=== PATIENT | female | born 1980 | race Caucasian/White ===

== ENCOUNTER 2020-02-06 16:57 | Inpatient (IN) | payer MEDICARE ==
[~2020-02-06] VITALS: Ht 165.1 cm; Wt 40.8 kg
[2020-02-06 17:36] LABS: BASOPHILS 0.3 % (0-2); EOSINOPHILS 0.1 % (0-7); HEMATOCRIT 32.2 % (36.0-48.0); HEMOGLOBIN 9.6 g/dL (12-16); IMMATURE GRANULOCYTES 0.3 % (0-5); LYMPHOCYTES 6.4 % (15-50); MCH 25.3 pg (26.0-34.0); MCHC 29.8 g/dL (31.0-37.0); MCV 84.7 fL (80.0-100.0); MEAN PLATELET VOLUME 8.5 fL (7.4-10.4); MONOCYTES 6.7 % (2-11); NEUTROPHILS 86.2 % (40-80); PLATELET COUNT 350 10x3/uL (130-400); RDW 15.2 % (11.5-14.5); WBC 14.4 10x3/uL (4.8-10.8)
[2020-02-06 17:51] LABS: CALC OSMOLALITY 286 mosm/kg (275-300); CALCIUM 9.3 mg/dL (8.5-10.1); CARBON DIOXIDE 29.1 mmol/L (21.0-32.0); CHLORIDE - SERUM 105 mmol/L (98-107); CREATININE - SERUM 0.9 mg/dL (0.6-1.3); GLUCOSE 85 mg/dL (74-106); POTASSIUM - SERUM 4.3 mmol/L (3.5-5.1); SODIUM 143 mmol/L (136-145); UREA NITROGEN 20 mg/dL (7-18); eGFR NON AFRICAN AMERICAN 73 mL/min (90-120)
[2020-02-06 18:08] LABS: ALKALINE PHOSPHATASE 84 U/L (30-120); BILIRUBIN - TOTAL 1.19 mg/dL (0.2-1.3); CKMB 0.4 U/L (0.0-3.6); CREATINE KINASE 38 UL (21-215); PROTEIN - SERUM 7.3 g/dL (6.4-8.2)
[2020-02-06 18:19] LABS: ALT (SGPT) 2 U/L (10-68); LIPASE 121 U/L (73-393); MAGNESIUM - SERUM 2.1 mg/dL (1.8-2.4)
[2020-02-06 18:20] LABS: AMYLASE - SERUM 46 U/L (25-115); TROPONIN-I < 0.017 ng/mL (0.000-0.060)
[2020-02-06 18:42] LABS: BILIRUBIN NEGATIVE (NEGATIVE); GLUCOSE NEGATIVE (NEGATIVE); KETONE NEGATIVE (NEGATIVE); NITRITE NEGATIVE (NEGATIVE); SPECIFIC GRAVITY 1.015 (1.005-1.020); UROBILINOGEN NORMAL (NORMAL)
[2020-02-06 18:43] LABS: AMORPHOUS SEDIMENT >1+ /lpf (NONE SEEN); BACTERIA MODERATE /hpf (NEGATIVE); RED CELLS - URINE NONE SEEN /hpf (0-5); WHITE CELLS - URINE 0-5 /hpf (NEGATIVE)
[2020-02-06 18:49] LABS: UDS - AMPHET POSITIVE QUAL (NEGATIVE); UDS - BARB NEGATIVE QUAL (NEGATIVE); UDS - BENZO NEGATIVE QUAL (NEGATIVE); UDS - COCAINE POSITIVE QUAL (NEGATIVE); UDS - OPIATE NEGATIVE QUAL (NEGATIVE); UDS - PCP NEGATIVE QUAL (NEGATIVE); UDS - THC NEGATIVE QUAL (NEGATIVE)
--- NOTE | 2020-02-06 19:16 | NUR ---
PATIENT TO CT VIA STRETCHER
--- NOTE | 2020-02-06 19:26 | NUR ---
SPOKE WITH DORA CARVER. ADVISED TO HOLD ROCEPHIN UNTIL BC DRAWN
--- NOTE | 2020-02-06 19:27 | NUR ---
SPOKE WITH LIN IN LAB. STATES BLOOD CULTURES ALREADY DRAWN. PATIENT REMAINS IN CT. WILL INITIATE ROCEPHIN WHEN SHE RETURNS.
--- NOTE | 2020-02-06 19:35 | NUR ---
FIRST BOLUS OF NS NOT COMPLETE. WILL COMPLETE AND HANG 2ND LITER NS.
[2020-02-06 19:55] VITALS: BP 108/42
--- NOTE | 2020-02-06 21:05 | NUR ---
PATIENT RESTING. WAITING ON ADMIT ORDERS. NS AND ZITHROMAX INFUSING
--- NOTE | 2020-02-06 22:30 | NUR ---
WAITING ON HOUSE SUP TO ASSIGN ROOM. PATIENT AWARE.
[2020-02-07] VITALS (7 sets, daily range): BP systolic 85–113; BP diastolic 56–70; Ht 165.1 cm; Wt 40.8 kg
--- NOTE | 2020-02-07 05:14 | NUR ---
I have reviewed this patient and I concur with the Shift Assessment completed by the Licensed Practical Nurse today this shift.
--- NOTE | 2020-02-07 19:27 | NUR ---
AROUSES WHEN I ENTER ROOM DENIES NEEDS AT THIS TIME BED IS LOW AND LOCKED AND CALL LIGHT IS IN REACH
[2020-02-08 05:17] LABS: BASOPHILS 0.4 % (0-2); EOSINOPHILS 1.6 % (0-7); HEMATOCRIT 31.4 % (36.0-48.0); HEMOGLOBIN 9.2 g/dL (12-16); IMMATURE GRANULOCYTES 0.1 % (0-5); LYMPHOCYTES 20.3 % (15-50); MCHC 29.3 g/dL (31.0-37.0); MCV 85.3 fL (80.0-100.0); MEAN PLATELET VOLUME 8.8 fL (7.4-10.4); MONOCYTES 9.5 % (2-11); NEUTROPHILS 68.1 % (40-80); RBC 3.68 10x6/uL (4.00-5.40); RDW 15.3 % (11.5-14.5)
[2020-02-08 05:28] LABS: PLATELET COUNT 549 10x3/uL (130-400); WBC 7.6 10x3/uL (4.8-10.8)
[2020-02-08 05:37] LABS: CALCIUM 8.1 mg/dL (8.5-10.1); CARBON DIOXIDE 29.6 mmol/L (21.0-32.0); CHLORIDE - SERUM 108 mmol/L (98-107); GLUCOSE 92 mg/dL (74-106); POTASSIUM - SERUM 3.8 mmol/L (3.5-5.1); SODIUM 142 mmol/L (136-145)
[2020-02-08 05:39] LABS: CALC OSMOLALITY 280 mosm/kg (275-300); UREA NITROGEN 7 mg/dL (7-18)
[2020-02-08 05:40] LABS: CREATININE - SERUM 0.5 mg/dL (0.6-1.3); eGFR NON AFRICAN AMERICAN > 90 mL/min (90-120)
[2020-02-08 08:29] VITALS: BP 95/60
[2020-02-08 12:22] VITALS: BP 107/78
--- NOTE | 2020-02-08 16:28 | NUR ---
I have reviewed this patient and I concur with the Shift Assessment completed by the Licensed Practical Nurse today this shift.
[2020-02-08 17:13] VITALS: BP 109/70
--- NOTE | 2020-02-08 19:26 | NUR ---
PT IS AT REST WITH EYES CLOSED IV SL BED LOW AND LOCKED SRXTWO AND CALL LIGHT IS IN REACH RESP EVEN AND NON LABORED
[2020-02-08 20:00] VITALS: BP 96/41
[2020-02-09] VITALS: BP 93/63
[2020-02-09 04:00] VITALS: BP 95/59
[2020-02-09 06:28] LABS: BASOPHILS 0.4 % (0-2); EOSINOPHILS 1.8 % (0-7); HEMATOCRIT 33.1 % (36.0-48.0); HEMOGLOBIN 9.7 g/dL (12-16); IMMATURE GRANULOCYTES 0.1 % (0-5); LYMPHOCYTES 25.7 % (15-50); MCH 24.9 pg (26.0-34.0); MCHC 29.3 g/dL (31.0-37.0); MCV 85.1 fL (80.0-100.0); MEAN PLATELET VOLUME 8.7 fL (7.4-10.4); MONOCYTES 9.7 % (2-11); NEUTROPHILS 62.3 % (40-80); PLATELET COUNT 587 10x3/uL (130-400); RBC 3.89 10x6/uL (4.00-5.40); RDW 15.1 % (11.5-14.5); WBC 6.7 10x3/uL (4.8-10.8)
[2020-02-09 06:51] LABS: CALC OSMOLALITY 274 mosm/kg (275-300); CALCIUM 8.3 mg/dL (8.5-10.1); CARBON DIOXIDE 30.2 mmol/L (21.0-32.0); CHLORIDE - SERUM 106 mmol/L (98-107); CREATININE - SERUM 0.5 mg/dL (0.6-1.3); GLUCOSE 77 mg/dL (74-106); POTASSIUM - SERUM 4.3 mmol/L (3.5-5.1); SODIUM 140 mmol/L (136-145); eGFR NON AFRICAN AMERICAN > 90 mL/min (90-120)
[2020-02-09 06:52] LABS: UREA NITROGEN 3 mg/dL (7-18)
[2020-02-09 08:00] VITALS: BP 113/72
[2020-02-09] MEDS ORDERED: OMNICEF300 MG PO (10:07)
[2020-02-09] MEDS ORDERED: ZITHROMAX500 MG PO (10:07)
--- NOTE | 2020-02-09 11:42 | NUR ---
I have reviewed this patient and I concur with the Shift Assessment completed by the Licensed Practical Nurse today this shift.
--- NOTE | 2020-02-09 12:30 | NUR ---
PT DISCHARGED HOME VIA WHEELCHAIR WITH TAXI. PIV REMOVED WITH CATHETER TIP FULLY INTACT. PT SIGNED DISCHARGE INSTRUCTIONS AND REMOVED ALL VALUABLES FROM THE ROOM.
--- NOTE | 2020-02-09 16:43 | MORECARE ---
CASE MANAGEMENT DISCHARGE SUMMARY PATIENT: HERBERT PATINO UNIT: [id number] ADM DATE: 02/06/20 AGE: 39 : 78 SEX: F ROOM/BED: D.0357 AUTHOR: ORAL,DOC PHYSICIAN: REFERRING PHYSICIAN: YUSUF FERNANDEZ MD DATE OF SERVICE: 02/09/20 Discharge Plan Patient Name: HERBERT PATINO Facility: [facility]:[place] : 1980 Planned Disposition: Home or Self Care Anticipated Discharge Date: 02/09/20 Discharge Date: 02/09/2020 Expected LOS: 3 Initial Reviewer: [email or web address] Initial Review Date: 02/06/2020 Generated: 02/09/20 5:42 pm Comments DCP- Discharge Planning Updated by [email or web address]: Mariela Menendez on 02/09/20 3:[address] CM met with patient to discuss DC needs/plans. A/O. Patient states she lives independently with "an older man, Vega." Patient states she just obtained her insurance. PCP: MAGUE @[facility]. Pharmacy: [facility]. DME: No. States she receives [employer] and SSI check. States "I am out of money for the month and don't have anyway to get home." CM verified patient's address as [address] [place] [address]. States she does not know her phone number "I just got a new phone and don't know how to get it open for contacting someone to pick me up." Denies the need for HHS, Rehab, SNF. Patient states she has 3 steps with rails at entry to her home. Denies hospitalization within the past 30 days. States she feels safe returning to her home. CM contacted [employer] [phone] for transportation home, with the cost of $7. 25. Notified Dir Shayna of [facility] of same. DCPIA - Discharge Planning Initial Assessment Updated by [email or web address]: Mariela Menendez on 02/09/20 4:42 pm * Is the patient Alert and Oriented? Yes * How many steps to enter\\exit or inside your home? 3/rails * PCP MAGUE @[facility] * Pharmacy [facility]. * Preadmission Environment Home Alone * ADLs Independent * Other Equipment NA * List name and contact numbers for known caregivers / representatives who currently or will assist patient after discharge: NA * Verbal permission to speak to the caregivers and representatives has been obtained from the patient. N/A * Community resources currently utilized Other * Please name any agencies selected above. SSI check [employer] * Additional services required to return to the preadmission environment? No * Can the patient safely return to the preadmission environment? Yes * Has this patient been hospitalized within the prior 30 days at any hospital? No Coverage Notice Reviewer: [id number] Jamie Menendez Notice Issued Date-Time: 02/09/2020 10:48 Notice Type: IM Discharge Notice Notice Delivered To: Patient Relationship to Patient: Self Relocation Counselor Name: Herbert Patino Delivery Method: HAND - Hand Delivered Brianna Days: Prior Verbal Notification: Recipient Understood Notice: Yes Recipient Signature: Yes Med Rec Note Co-signed by Attending: Coverage Notice Comment: DC IMM signed/provided to patient. Original to chart Patient Name: HERBERT PATINO Page [id number] at 1643 All edits/amendments must be made on the electronic document DICTATION DATE: 02/09/201641 LENS EDGE GRINDER MACHINE: DEEJAY 02/09/201641 RPT#: [id number] DC DATE:02/09/20 STATUS: DIS IN [facility] [address] [place] [address] END OF REPORT
== END 2020-02-09 12:31 | disposition home or self-care (01) | DRG 194 ==
LOC: D.ER 16:57 → D.M2 21:13 → D.ICU 21:13 → D.M2 22:32
PROVIDERS: Family Medicine; ADMIT Internal Medicine Nephrology; ATTEND Internal Medicine Nephrology
DX: J18.9 Pneumonia, unspecified organism (principal); N39.0 Urinary tract infection, site not specified; N17.9 Acute kidney failure, unspecified; E46 Unspecified protein-calorie malnutrition; Z68.1 Body mass index [BMI] 19.9 or less, adult; K59.00 Constipation, unspecified; D50.9 Iron deficiency anemia, unspecified; F15.10 Other stimulant abuse, uncomplicated; F14.10 Cocaine abuse, uncomplicated

== ENCOUNTER 2020-03-15 14:54 | Emergency (ER) | payer MEDICARE, MEDICAID ==
[~2020-03-15 14:54] MED LIST: OMNICEF300 MG PO; ZITHROMAX500 MG PO
[2020-03-15 14:58] VITALS: BP 123/69; Ht 165.1 cm
[2020-03-15] MEDS ORDERED: CLEOCIN HCL300 MG PO (15:40)
[2020-03-15] MEDS ORDERED: TYLENOL W/CODEI1 TAB PO (15:40)
== END 2020-03-15 16:07 | disposition home or self-care (01) ==
LOC: D.ER 14:54
DX: L03.116 Cellulitis of left lower limb (principal)

== ENCOUNTER 2021-01-03 18:08 | Observation (INO) | payer MEDICARE, MEDICAID ==
[~2021-01-03] VITALS: Ht 165.1 cm; Wt 45.4 kg
[~2021-01-03 18:08] MED LIST changes: +CLEOCIN HCL300 MG PO; +TYLENOL W/CODEI1 TAB PO
--- NOTE | 2021-01-03 18:19 | NUR ---
URINE TO LAB
--- NOTE | 2021-01-03 18:27 | NUR ---
HSPD LAMIN BALDERAS #[id number] AND OFFICER KAYDEN #[id number] AT BEDSIDE
[2021-01-03 18:34] LABS: BILIRUBIN NEGATIVE (NEGATIVE); KETONE NEGATIVE (NEGATIVE); NITRITE POSITIVE (NEGATIVE); UROBILINOGEN NORMAL mg/dL (< 2)
[2021-01-03 18:35] LABS: UDS - AMPHET POSITIVE QUAL (NEGATIVE); UDS - BARB NEGATIVE QUAL (NEGATIVE); UDS - BENZO NEGATIVE QUAL (NEGATIVE); UDS - COCAINE POSITIVE QUAL (NEGATIVE); UDS - OPIATE NEGATIVE QUAL (NEGATIVE); UDS - PCP NEGATIVE QUAL (NEGATIVE); UDS - THC NEGATIVE QUAL (NEGATIVE)
[2021-01-03 18:36] LABS: BASOPHILS 0.5 % (0-2); EOSINOPHILS 2.1 % (0-7); HEMATOCRIT 23.4 % (36.0-48.0); IMMATURE GRANULOCYTES 0.2 % (0-5); LYMPHOCYTE ABS# 1.39 10x3/uL (1.18-3.74); LYMPHOCYTES 22.7 % (15-50); MCHC 26.5 g/dL (31.0-37.0); MCV 63.4 fL (80.0-100.0); MEAN PLATELET VOLUME 8.4 fL (7.4-10.4); MONOCYTES 12.1 % (2-11); NEUTROPHIL ABS# 3.81 10x3/uL (1.56-6.13); NEUTROPHILS 62.4 % (40-80); PLATELET COUNT 497 10x3/uL (130-400); RBC 3.69 10x6/uL (4.00-5.40); RDW 19.9 % (11.5-14.5); WBC 6.1 10x3/uL (4.8-10.8)
[2021-01-03 18:36] LABS: BACTERIA MANY HPF (NONE SEEN); SQUAMOUS EPITHELIAL 0-5 HPF (0-4)
[2021-01-03 18:48] LABS: CALC OSMOLALITY 281 mosm/kg (275-300); CALCIUM 8.9 mg/dL (8.5-10.1); CARBON DIOXIDE 28.2 mmol/L (21.0-32.0); CHLORIDE - SERUM 108 mmol/L (98-107); CREATININE - SERUM 0.6 mg/dL (0.6-1.3); GLUCOSE 102 mg/dL (74-106); POTASSIUM - SERUM 3.5 mmol/L (3.5-5.1); SODIUM 141 mmol/L (136-145); UREA NITROGEN 14 mg/dL (7-18); eGFR NON AFRICAN AMERICAN > 90 mL/min (90-120)
[2021-01-03 18:57] LABS: APTT 29.1 SECONDS (22.8-39.4); INR 1.17 (0.85-1.17); PROTIME 13.8 SECONDS (11.6-15.0)
[2021-01-03 19:04] LABS: ALBUMIN 3.2 g/dL (3.4-5.0); ALKALINE PHOSPHATASE 74 U/L (30-120); ALT (SGPT) 13 U/L (10-68); BILIRUBIN - TOTAL 0.58 mg/dL (0.2-1.3); CKMB 0.4 U/L (0.0-3.6); CREATINE KINASE 64 UL (21-215); MAGNESIUM - SERUM 2.1 mg/dL (1.8-2.4); PROTEIN - SERUM 7.1 g/dL (6.4-8.2); THYROID STIMULATING HORMONE 1.17 uIU/mL (0.36-3.74)
[2021-01-03 19:05] LABS: TROPONIN-I < 0.017 ng/mL (0.000-0.060)
--- NOTE | 2021-01-03 19:21 | NUR ---
REPORT GIVEN TO GLEN CAIN
[2021-01-03 19:23] LABS: HEMOGLOBIN 6.2 g/dL (12-16); MCH 16.8 pg (26.0-34.0)
[2021-01-03 19:30] VITALS: BP 97/66
[2021-01-03 20:00] VITALS: BP 101/61
[2021-01-03 20:30] VITALS: BP 101/62
[2021-01-03 20:53] LABS: % SATURATION 2 % (15-55); IRON 9 ug/dl (35-150); TOTAL IRON BIND CAPACITY 347 ug/dl (260-445); UNSAT IRON BIND CAPACITY 338 ug/dl (150-375)
[2021-01-03 21:30] VITALS: BP 97/66
[2021-01-03 22:30] VITALS: BP 101/62
--- NOTE | 2021-01-03 23:04 | NUR ---
SPOKE WITH JUAN MANUEL CHAO APRN AT THIS TIME CONCERNING NEED FOR BLOOD TRANSFUSION ORDER. VERBAL ORDER GIVEN TO GIVE PT 2 UNITS PRBC. SEE ORDERS.
[2021-01-04 04:00] VITALS: BP 103/60
[2021-01-04 05:26] VITALS: Ht 165.1 cm; Wt 45.4 kg
--- NOTE | 2021-01-04 07:50 | NUR ---
PT IS RESTING IN BED WITH EYES OPNE. RESPIRATIONS ARE EVEN AND UNLABORED. PT IS AAO X 4 AND ANSWERS ALL QUESTIONS APPROPRIATLEY. PT SPEECH IS GARBELED AND DIFFICULTY TO UNDERSTAND. PIV TO LEFT FA INFUSING PER ORDER. PT DENIES PRESENCE OF PAIN/N/V/DYSPNEA/SOB AT THIS TIME. PT WITH IRRITATION WITH CLD. PT EDUCATED ON PLAN OF CARE AND CLD. PT VERBALIZES UNDERSTANDING AND CONTINUES TO STATE "ILL JUST EAT MY OWN FOOD". NO FOOD SEEN WITHIN ROOM AT THIS TIME. BED IS IN THE LOWEST POSITION. CALL LIGHT AND BEDSIDE TABLE ARE WITHIN REACH. SIDE RAILS X 2. PT DENIES FURTHER NEEDS. WILL CONT TO MONITOR.
[2021-01-04 08:07] LABS: BASOPHILS 0.4 % (0-2); EOSINOPHILS 3.2 % (0-7); IMMATURE GRANULOCYTES 0.2 % (0-5); LYMPHOCYTES 20.7 % (15-50); MCHC 28.8 g/dL (31.0-37.0); MEAN PLATELET VOLUME 8.5 fL (7.4-10.4); MONOCYTES 12.4 % (2-11); NEUTROPHIL ABS# 3.35 10x3/uL (1.56-6.13); NEUTROPHILS 63.1 % (40-80); PLATELET COUNT 414 10x3/uL (130-400); RBC 4.22 10x6/uL (4.00-5.40); RDW 23.4 % (11.5-14.5); WBC 5.3 10x3/uL (4.8-10.8)
[2021-01-04 08:18] LABS: HEMATOCRIT 28.8 % (36.0-48.0); HEMOGLOBIN 8.3 g/dL (12-16); MCH 19.7 pg (26.0-34.0); MCV 68.2 fL (80.0-100.0)
[2021-01-04 08:27] LABS: ALBUMIN 2.8 g/dL (3.4-5.0); ALKALINE PHOSPHATASE 71 U/L (30-120); ALT (SGPT) 12 U/L (10-68); BILIRUBIN - TOTAL 2.21 mg/dL (0.2-1.3); CALC OSMOLALITY 272 mosm/kg (275-300); CALCIUM 8.4 mg/dL (8.5-10.1); CARBON DIOXIDE 25.2 mmol/L (21.0-32.0); CHLORIDE - SERUM 103 mmol/L (98-107); CREATININE - SERUM 0.6 mg/dL (0.6-1.3); GLUCOSE 93 mg/dL (74-106); MAGNESIUM - SERUM 2.2 mg/dL (1.8-2.4); PHOSPHOROUS 3.1 mg/dL (2.5-4.9); PROTEIN - SERUM 6.7 g/dL (6.4-8.2); SODIUM 137 mmol/L (136-145); UREA NITROGEN 11 mg/dL (7-18); eGFR NON AFRICAN AMERICAN > 90 mL/min (90-120)
[2021-01-04 08:44] VITALS: BP 101/69
[2021-01-04 08:56] LABS: APTT 30.5 SECONDS (22.8-39.4); INR 1.12 (0.85-1.17); PROTIME 13.3 SECONDS (11.6-15.0)
--- NOTE | 2021-01-04 12:15 | NUR ---
PT UNCOOPERATIVE WITH PLAN OF CARE. PT WITH INCREASED AGITATION DUE TO CLD. PIPE ROUSE APN AT BEDSIDE AND PLAN OF CARE AND EDUCATION GIVEN. PT CONTINUES WITH NON COMPLIANCE AND STATES "BRING ME THE PAPERS AND TAKE THIS IV OUT. IM NOT STAYING HERE" PT ENCOURAGED TO REMAIN AT HOSPITAL FOR CARE. PT IS UNCOOPERATIVE AND BECOMES INCREASINGLY IRRITATED. AMA PAPERS PRINTED AND SIGNED BY PT. PT EDUCATED ON LEAVING AMA AND URGED TO STAY AT HOSPITAL FOR CARE. PT REFUSES. PIV TO REMOVED FROM LEFT FA WITH CATHETER TIP INTACT. DRESSING APPLIED. PIPE ROUSE APN SIGN AMA PAPERS WITNESS. SIGNED AMA PAPERS PLACED IN PT CHART. PT AMBULATES FROM ROOM AND DENIES FURTHER NEEDS/CONCERNS.
[2021-01-04 12:27] VITALS: BP 102/72
[2021-01-04 12:47] LABS: HEMATOCRIT 29.3 % (36.0-48.0); HEMOGLOBIN 8.5 g/dL (12-16)
== END 2021-01-04 12:56 | disposition left against medical advice (07) ==
LOC: D.ER 18:08 → D.MS 20:29 → OBSVTIME 20:29 → D.MS 01-04 12:56
PROVIDERS: Family Medicine; ADMIT Emergency Medicine; ATTEND Emergency Medicine
DX: D50.9 Iron deficiency anemia, unspecified (principal); F15.10 Other stimulant abuse, uncomplicated; N39.0 Urinary tract infection, site not specified; R41.82 Altered mental status, unspecified; G93.41 Metabolic encephalopathy; Z53.29 Procedure and treatment not carried out because of patient's decision for other reasons